=== PATIENT | male | born 1970 | race African-American/Black ===

== ENCOUNTER 2024-04-19 10:32 | Emergency (ER) | payer OTHER ==
[~2024-04-19] VITALS: Ht 190.5 cm; Wt 114.2 kg
[2024-04-19 13:26] LABS: Urine Bacteria None Seen /hpf (None Seen)
[2024-04-19 13:47] LABS: Urine Blood Negative /uL (Negative); Urine Clarity Clear (Clear); Urine Color Yellow (Yellow); Urine Mucus FEW (None Seen); Urine Protein, UAD 1+ (Negative); Urine Specific Gravity 1.027 (1.001-1.035); Urine Urobilinogen Normal (Negative); Urine WBC <1 /hpf (0 - 3)
[2024-04-19 14:40] VITALS: BP 166/108; PULSE 98; RESP 15; TEMP 97.6; O2SAT 99
[2024-04-19] MEDS: cloNIDine HCL 0.1 MG TAB PO ONE ×2 (14:40→17:35)
[2024-04-19] MEDS ORDERED: CYCL-839 PO (16:45)
[2024-04-19] MEDS ORDERED: OLME40TA76 PO (16:45)
[2024-04-19] MEDS ORDERED: DICL50TA2 PO (16:45)
[2024-04-19] MEDS ORDERED: ATEN-60 PO (16:45)
== END 2024-04-19 17:38 | disposition home or self-care (01) ==
LOC: ER 10:32
DX: M54.59 Other low back pain (principal); I10 Essential (primary) hypertension; Z98.890 Other specified postprocedural states
CPT/HCPCS: 81001